=== PATIENT | female | born 1990 | race Caucasian/White ===

== ENCOUNTER 2016-10-01 15:05 | Inpatient (IN) | payer OTHER ==
[~2016-10-01] VITALS: Ht 177.8 cm; Wt 61.7 kg
--- NOTE | ~2016-10-01 | PA ---
Unit #: [id number] #: [id number] Patient: BRANDON BRAGG [id number] [facility] [address] [place] [address] [id number] MR#: [id number] NAME: BRANDON BRAGG ROOM: P214 Age: 26 Sex: F Admission Date: 10/01/2016 : 1990 Date of Assessment: 10/02/2016 Attending Physician: Erin Liao M.D. Admitting Physician: Erin Liao M.D. Primary Care Physician: Primary Care Physician No PSYCHIATRIC ASSESSMENT DATE OF SERVICE 10/02/2016. IDENTIFYING DATA Ms. Bragg is a 26-year-old, single, white female, who is a resident of [place], [place], and was self-referred to the hospital on a voluntary basis and accompanied by her significant other. CHIEF COMPLAINT "I've been very depressed and thinking about suicide a lot lately." HISTORY OF PRESENT ILLNESS Ms. Bragg is a 26-year-old white female, who was brought to the hospital. 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 "I've been abusing Adderall and it has been really bad something to my thinking." The patient reports that she is not the same person she was 6 months ago and she started abusing it when her grandfather 6 months ago and reports that she has ADHD and was prescribed Adderall, was initially taking the medications as prescribed and was told by her sister that if she takes a bunch of them, she would get high and the patient reports that all gave her energy and made her supermom and reports that she has been struggling with depression and substance abuse for many years and that she was recently addicted to opioids and has been getting Suboxone to keep her off the opioids and reports that she needs to get back to who she just used to be before all of this and was seen to be tearful during evaluation as she stated "I'm just so sad." She was seen to be a significant danger to self and others, therefore, recommendation for inpatient level of care for safety and stabilization was made and the patient was stepped up to the inpatient unit. SUBSTANCE ABUSE HISTORY The patient does report history of substance abuse and dependence including cannabis, opioids, and amphetamines, and currently, she has been abusing Adderall and has been abusing opioids on a regular basis. It appears that she has been going to [facility] in [place] and has been getting Adderall prescriptions. PAST PSYCHIATRIC HISTORY The patient has had a history of inpatient psychiatric hospitalization at the [facility] as well as other facilities and has been diagnosed and Unit #: [id number] #: [id number] Patient: BRANDON BRAGG treated for mood disorder. PAST MEDICAL HISTORY The patient's medical history is insignificant. ALLERGIES No known medication allergies. PERSONAL AND SOCIAL HISTORY A 26-year-old white female, who reports that she lives at home with her significant other and has fairly decent social support system. MENTAL STATUS EXAMINATION Young white female, who was casually dressed with fair personal hygiene, appears to be in no acute distress or discomfort. She was awake and alert on interaction with intact orientation to time, place, and person. Her mood was anxious and depressed with a congruent affect. Her speech was slow and restricted in content. She reports having suicidal ideations, but denies any homicidal ideations, and also denies any auditory or visual hallucinations. Her insight and judgment remain significantly impaired. DIAGNOSTIC IMPRESSION Psychiatric: Major depressive disorder, recurrent, moderate, without psychotic features; opioid dependence, moderate and acute withdrawals; amphetamine dependence, moderate. Medical: None. Stressors: Moderate psychosocial stressors. TREATMENT PLAN 1. The patient has presented with a history of substance abuse and mood disorder, and has been decompensating and will need inpatient hospitalization for safety and stabilization. We will start her back on her home medications. We will adjust the medications and monitor response. 2. Supportive therapy was provided to the patient. 3. Safe, structured, and nourishing environment will be provided. ESTIMATED LENGTH OF STAY 4 to 5 days. ABILITY TO HELP SELF Limited. WILLINGNESS TO HELP SELF The patient appears to be willing to help self. STRENGTHS 1. Communicative. 2. Cooperative. PROBLEMS 1. Chronic dysphoric symptoms. 2. Chronic chemical dependency. 3. Poor social support system. DISCHARGE CRITERIA This will be contingent upon the patient's ability to show resolution of Unit #: [id number] #: [id number] Patient: BRANDON BRAGG her depression and anxiety and her ability to go through detox without having any significant withdrawal symptoms as well as her ability to stay safe to herself, particularly after discharge from the hospital. Dictated by... Erin Liao M.D. AIMEE/anuragl TD: 10/02/2016 07:50 JOB #: [id number] PSYCHIATRIC ASSESSMENT Page 1 of 1 X Erin Liao MD X PSYCHIATRIC ASSESSMENT
--- NOTE | ~2016-10-01 | HP ---
Unit #: [id number] #: [id number] Patient: DAJA BRAGG [id number] [place] [address] [id number] MR#: [id number] NAME: DAJA BRAGG ROOM: P214 Age: 26 Sex: F Admission Date: 10/01/2016 : 1990 Attending Physician: Erin Liao M.D. Admitting Physician: Erin Liao M.D. Primary Care Physician: Primary Care Physician No HISTORY AND PHYSICAL Daja is a 26-year-old female who was admitted and discharged within the first 24 hours. She was not seen for an H and P. Dictated by... Ruma Muniz P.A.-C. for Juyd Muniz/karla TD: 10/02/2016 16:06 JOB #: [id number] HISTORY AND PHYSICAL Page 1 of 1 X Ruma Muniz HISTORY AND PHYSICAL
[2016-10-02 12:36] LABS: BASOPHIL% 0.8 % (0-2.5); DIFF IND NO; EOSINOPHIL# 0.1 X10e3 (0-0.7); HEMATOCRIT 43.4 % (35.0-45.0); HEMOGLOBIN 14.2 gm/dL (12.0-16.0); LYMPHOCYTE# 2.5 X10e3 (1.0-3.5); LYMPHOCYTE% 44.1 % (17.0-45.0); MEAN CELL VOLUME 91.9 FL (83-96); MEAN CORPUSCULAR HEMOGLOBIN 30.1 PG (28-34); MEAN CORPUSCULAR HGB CONC 32.7 g/dL (30-36); MEAN PLATELET VOLUME 7.2 FL (6.5-11.5); MONOCYTE# 0.4 X10e3 (0-1.0); MONOCYTE% 6.4 % (3.0-12.0); NEUTROPHIL# 2.6 X10e3 (1.5-7.1); NEUTROPHIL% 46.7 % (40-75); PLATELET COUNT 301 X10e3 (140-420); RED BLOOD COUNT 4.73 X10e (3.90-5.30); RED CELL DISTRIBUTION WIDTH 15.2 % (11.0-15.5); WHITE BLOOD COUNT 5.6 X10e3 (4.0-10.5)
[2016-10-02 12:50] LABS: ALBUMIN SERUM 4.2 g/dL (3.5-5.0); BILIRUBIN,TOTAL 0.1 mg/dL (0.2-2.0); BUN/CREATININE RATIO 18.33; CALCIUM SERUM 9.4 mg/dL (8.4-10.2); CREATININE SERUM 0.6 mg/dL (0.6-1.4); POTASSIUM 4.5 mmol/L (3.5-5.1); PROTEIN TOTAL SERUM 7.4 g/dL (6.0-8.3)
[2016-10-02 12:58] LABS: THYROID STIMULATING HORMONE 2.57 uIU/ml (0.34-5.60)
[2016-10-02 13:05] LABS: FREE THYROXIN (T4) 0.8 ng/dL (0.58-1.64)
== END 2016-10-02 12:30 | disposition home or self-care (01) | DRG 885 ==
LOC: P2S 21:16
PROVIDERS: Psychiatry & Neurology Psychiatry
DX: F33.1 Major depressive disorder, recurrent, moderate (principal); F15.20 Other stimulant dependence, uncomplicated; F11.23 Opioid dependence with withdrawal
CPT/HCPCS: 80053; 84439; 84443; 84703; 85025; 86592